=== PATIENT | female | born 1945 | race Native Hawaiian/Other Pacific Islander ===

== ENCOUNTER → 2016-06-23 12:35 | Outpatient (CLI) | payer OTHER ==
[2016-06-23 13:39] LABS: PLATELET COUNT 348 K/uL (152-353)
[2016-06-23 16:18] LABS: POTASSIUM 3.9 mmol/L (3.6-5.2); SODIUM 137 mmol/L (136-145)
== END | disposition home or self-care (01) ==
LOC: LAB 12:35
PROVIDERS: Nurse Practitioner Family
DX: Z00.00 Encounter for general adult medical examination without abnormal findings (principal); M25.562 Pain in left knee; E78.00 Pure hypercholesterolemia, unspecified; E03.8 Other specified hypothyroidism; Z79.899 Other long term (current) drug therapy
CPT/HCPCS: 80053; 80061; 83036; 84439; 84443; 85027

== ENCOUNTER 2016-07-31 10:52 | Outpatient (CLI) | payer OTHER | END 2016-07-31 19:26 | disposition home or self-care (01) | LOC: MAMMO 10:52 | DX: Z12.31 Encounter for screening mammogram for malignant neoplasm of breast (principal) | CPT/HCPCS: G0202-TC ==

== ENCOUNTER 2018-02-01 10:10 | Outpatient (CLI) | payer OTHER ==
[2018-02-01 11:07] LABS: PLATELET COUNT 288 K/uL (152-353)
[2018-02-01 12:00] LABS: POTASSIUM 3.8 mmol/L (3.6-5.2)
== END 2018-02-01 19:26 | disposition home or self-care (01) ==
LOC: LABW 10:10
PROVIDERS: Orthopaedic Surgery
DX: Z01.89 Encounter for other specified special examinations (principal); M25.561 Pain in right knee; R53.83 Other fatigue; D64.9 Anemia, unspecified; Z01.818 Encounter for other preprocedural examination
CPT/HCPCS: 36415; 80053; 83036; 84134; 85027; 85651; 86140; 93005

== ENCOUNTER 2018-08-22 20:34 | Outpatient (CLI) | payer OTHER | END 2018-08-22 20:52 | disposition short-term general hospital (02) | LOC: AMB 20:34 | DX: N93.8 Other specified abnormal uterine and vaginal bleeding (principal) | CPT/HCPCS: A0425; A0427 ==

== ENCOUNTER 2018-08-22 21:00 | Emergency (ER) | payer OTHER ==
[~2018-08-22] VITALS: Ht 154.9 cm; Wt 68.9 kg
[2018-08-22 21:39] LABS: PLATELET COUNT 300 K/uL (152-353)
[2018-08-22 21:44] LABS: POTASSIUM 3.8 mmol/L (3.6-5.2)
[2018-08-23 02:44] VITALS: BP 142/71; TEMP 97.9
== END 2018-08-23 02:44 | disposition home or self-care (01) ==
LOC: ED 21:00
PROVIDERS: Internal Medicine
DX: N81.10 Cystocele, unspecified (principal); R31.9 Hematuria, unspecified; K62.89 Other specified diseases of anus and rectum; D64.89 Other specified anemias
CPT/HCPCS: 74022; 80053; 81000; 85027; 96374; 96375; 99284; J2270; J2405; Q9963

== ENCOUNTER 2018-11-08 12:47 | Outpatient (CLI) | payer OTHER | END 2018-11-08 21:46 | disposition home or self-care (01) | LOC: MAMMO 12:47 | DX: Z12.31 Encounter for screening mammogram for malignant neoplasm of breast (principal); Z13.820 Encounter for screening for osteoporosis; N95.8 Other specified menopausal and perimenopausal disorders ==

== ENCOUNTER 2019-05-14 13:42 | Outpatient (CLI) | payer OTHER | END 2019-05-14 22:31 | disposition home or self-care (01) | LOC: RAD 13:42 | DX: M79.672 Pain in left foot (principal) ==

== ENCOUNTER 2019-06-06 08:27 | Outpatient (CLI) | payer OTHER | END 2019-06-06 19:07 | disposition home or self-care (01) | LOC: RAD 08:27 | DX: Z01.818 Encounter for other preprocedural examination (principal) ==

== ENCOUNTER 2019-09-12 17:01 | Emergency (ER) | payer OTHER ==
[~2019-09-12] VITALS: Ht 154.9 cm; Wt 68.9 kg
[2019-09-12 18:08] VITALS: BP 128/50; TEMP 99.2
== END 2019-09-12 18:08 | disposition home or self-care (01) ==
LOC: ED 17:01
DX: L03.115 Cellulitis of right lower limb (principal); M25.561 Pain in right knee; Z96.651 Presence of right artificial knee joint
CPT/HCPCS: 96372; 99283; J1885

== ENCOUNTER 2019-10-08 10:56 | Outpatient (CLI) | payer OTHER ==
[2019-10-08 11:24] LABS: PLATELET COUNT 338 K/uL (152-353)
== END 2019-10-08 22:06 | disposition home or self-care (01) ==
LOC: US 10:56
PROVIDERS: Orthopaedic Surgery
DX: Z01.810 Encounter for preprocedural cardiovascular examination (principal); Z01.812 Encounter for preprocedural laboratory examination; M25.561 Pain in right knee; R22.41 Localized swelling, mass and lump, right lower limb; Z96.651 Presence of right artificial knee joint; Z79.899 Other long term (current) drug therapy; Z13.228 Encounter for screening for other metabolic disorders; Z13.1 Encounter for screening for diabetes mellitus; Z13.6 Encounter for screening for cardiovascular disorders; I10 Essential (primary) hypertension; Z87.891 Personal history of nicotine dependence; Z79.01 Long term (current) use of anticoagulants; Z79.82 Long term (current) use of aspirin; E11.65 Type 2 diabetes mellitus with hyperglycemia; Z79.4 Long term (current) use of insulin; R68.89 Other general symptoms and signs
CPT/HCPCS: 36415; 85027; 85651; 86140

== ENCOUNTER 2020-02-16 17:58 | Emergency (ER) | payer OTHER ==
[~2020-02-16] VITALS: Ht 154.9 cm; Wt 59.0 kg
[2020-02-16] MEDS ORDERED: LIPITOR80 MG PO (18:24)
[2020-02-16] MEDS ORDERED: EUTHYROX25 MCG PO (18:24)
[2020-02-16] MEDS ORDERED: CALCIUM 601 PO (18:24)
[2020-02-16] MEDS ORDERED: BIOTIN PO (18:25)
[2020-02-16] MEDS ORDERED: MULTI VITAMIN1 TAB PO (18:26)
[2020-02-16] MEDS ORDERED: TROSPIUM CHLORI60 MG PO (18:29)
[2020-02-16 19:50] VITALS: BP 154/84; TEMP 98.1
== END 2020-02-16 19:50 | disposition home or self-care (01) ==
LOC: ED 17:58
DX: N39.0 Urinary tract infection, site not specified (principal)
CPT/HCPCS: 81000; 87086; 87088; 96372; 99283; J0696; J1885

== ENCOUNTER 2020-04-06 08:59 | Outpatient (CLI) | payer OTHER ==
[~2020-04-06 08:59] MED LIST: BIOTIN PO; CALCIUM 601 PO; EUTHYROX25 MCG PO; LIPITOR80 MG PO; MULTI VITAMIN1 TAB PO; TROSPIUM CHLORI60 MG PO
== END 2020-04-06 21:33 | disposition home or self-care (01) ==
LOC: US 08:59
PROVIDERS: ATTEND Family Medicine
DX: I10 Essential (primary) hypertension (principal)
CPT/HCPCS: 93975

== ENCOUNTER 2020-05-08 10:17 | Emergency (ER) | payer OTHER ==
[~2020-05-08] VITALS: Ht 160 cm; Wt 60.3 kg
[2020-05-08 11:39] VITALS: BP 141/83; TEMP 98.6
== END 2020-05-08 11:50 | disposition home or self-care (01) ==
LOC: ED 10:17
DX: S46.812A Strain of other muscles, fascia and tendons at shoulder and upper arm level, left arm, initial encounter (principal); S16.1XXA Strain of muscle, fascia and tendon at neck level, initial encounter; M19.012 Primary osteoarthritis, left shoulder; M19.09 Primary osteoarthritis, other specified site
CPT/HCPCS: 96372; 99283; J1885

== ENCOUNTER 2020-07-14 13:49 | Outpatient (CLI) | payer OTHER | END 2020-07-14 20:31 | disposition home or self-care (01) | LOC: MAMMO 13:49 | PROVIDERS: ATTEND Nurse Practitioner Family | DX: Z12.31 Encounter for screening mammogram for malignant neoplasm of breast (principal) ==

== ENCOUNTER 2020-09-27 09:45 | Outpatient (CLI) | payer OTHER | END 2020-09-27 13:00 | disposition home or self-care (01) | LOC: US 09:45 | PROVIDERS: ATTEND Nurse Practitioner Family | DX: R41.3 Other amnesia (principal) ==

== ENCOUNTER 2020-11-06 20:18 | Emergency (ER) | payer OTHER ==
[~2020-11-06] VITALS: Ht 160 cm; Wt 60.3 kg
[2020-11-06 21:55] LABS: PLATELET COUNT 144 K/uL (152-353)
[2020-11-06 22:03] LABS: POTASSIUM 3.9 mmol/L (3.6-5.2)
[2020-11-06 23:50] VITALS: BP 126/54; TEMP 98.5
== END 2020-11-06 23:52 | disposition home or self-care (01) ==
LOC: ED 20:18
PROVIDERS: Emergency Medicine
DX: R68.83 Chills (without fever) (principal); R53.81 Other malaise
CPT/HCPCS: 80048; 81000; 85027; 96372; 99283; J0696

== ENCOUNTER 2020-11-22 10:55 | Outpatient (CLI) | payer OTHER | END 2020-11-22 19:10 | disposition home or self-care (01) | LOC: RAD 10:55 | PROVIDERS: ATTEND Nurse Practitioner Family | DX: Z13.820 Encounter for screening for osteoporosis (principal); N95.8 Other specified menopausal and perimenopausal disorders ==

== ENCOUNTER 2021-09-11 17:30 | Emergency (ER) | payer OTHER ==
[~2021-09-11] VITALS: Ht 160 cm; Wt 60.3 kg
[2021-09-11 18:39] LABS: POTASSIUM 4.2 mmol/L (3.6-5.2)
[2021-09-11 18:45] LABS: PLATELET COUNT 239 K/uL (152-353)
[2021-09-11 18:52] LABS: PARTIAL THROMBOPLASTIN TIME 24.8 SECONDS (24.5-33.6)
[2021-09-11 20:06] VITALS: BP 106/58; TEMP 97.2
== END 2021-09-11 20:06 | disposition home or self-care (01) ==
LOC: ED 17:30
PROVIDERS: Hospitalist
DX: R07.89 Other chest pain (principal); S00.83XA Contusion of other part of head, initial encounter; W01.198A Fall on same level from slipping, tripping and stumbling with subsequent striking against other object, initial encounter; Y92.090 Kitchen in other non-institutional residence as the place of occurrence of the external cause
CPT/HCPCS: 36415; 80048; 80320; 85027; 85610; 85730; 96374; 96375; 99284; J1885; J2405; Q9963

== ENCOUNTER 2021-10-21 09:38 | Emergency (ER) | payer OTHER ==
[~2021-10-21] VITALS: Ht 160 cm; Wt 60.3 kg
[2021-10-21 09:42] VITALS: BP 132/70; TEMP 98.2
[2021-10-21 10:18] LABS: PLATELET COUNT 146 K/uL (152-353)
[2021-10-21 10:25] LABS: POTASSIUM 3.7 mmol/L (3.6-5.2)
[2021-10-21 10:36] LABS: PARTIAL THROMBOPLASTIN TIME 22.7 SECONDS (24.5-33.6)
== END 2021-10-21 12:16 | disposition home or self-care (01) ==
LOC: ED 09:38
PROVIDERS: Hospitalist
PROC: 0HQ0XZZ Repair Scalp Skin, External Approach (ICD-10-PCS; principal; 2021-10-21)
DX: S01.01XA Laceration without foreign body of scalp, initial encounter (principal); W01.198A Fall on same level from slipping, tripping and stumbling with subsequent striking against other object, initial encounter; Y92.512 Supermarket, store or market as the place of occurrence of the external cause; Z79.899 Other long term (current) drug therapy; Z51.81 Encounter for therapeutic drug level monitoring
CPT/HCPCS: 80048; 80320; 85027; 85610; 85730; 93005; 96372; 99283; J0690; J1885; J7040

== ENCOUNTER 2021-10-24 11:01 | Emergency (ER) | payer OTHER ==
[~2021-10-24] VITALS: Ht 160 cm; Wt 62.1 kg
[2021-10-24 11:25] VITALS: BP 143/76; TEMP 98
== END 2021-10-24 11:25 | disposition home or self-care (01) ==
LOC: ED 11:01
DX: Z51.89 Encounter for other specified aftercare (principal)
CPT/HCPCS: 99282

== ENCOUNTER 2021-11-06 16:24 | Emergency (ER) | payer OTHER ==
[~2021-11-06] VITALS: Ht 160 cm; Wt 62.1 kg
[2021-11-06 16:30] VITALS: TEMP 98.2
[2021-11-06 16:59] LABS: PLATELET COUNT 236 K/uL (152-353)
[2021-11-06 17:07] LABS: POTASSIUM 3.7 mmol/L (3.6-5.2)
[2021-11-06 17:19] LABS: PARTIAL THROMBOPLASTIN TIME 22.5 SECONDS (24.5-33.6)
[2021-11-06 20:50] VITALS: BP 126/53
== END 2021-11-06 20:40 | disposition home or self-care (01) ==
LOC: ED 16:24
PROVIDERS: Hospitalist
DX: R42 Dizziness and giddiness (principal); Z91.81 History of falling; Z79.899 Other long term (current) drug therapy; Z51.81 Encounter for therapeutic drug level monitoring
CPT/HCPCS: 80053; 80320; 81002; 82550; 83880; 84484; 85027; 85610; 85730; 93005; 96360; 96365; 96375; 99284; J0696; J1885; J2405

== ENCOUNTER 2021-11-09 10:01 | Outpatient (CLI) | payer OTHER | END 2021-11-09 18:55 | disposition home or self-care (01) | LOC: MRI 10:01 | PROVIDERS: ATTEND Nurse Practitioner Family | DX: R55 Syncope and collapse (principal); R41.3 Other amnesia ==